=== PATIENT | male | born 1985 | race American Indian/Alaskan Native ===

== ENCOUNTER 2017-10-09 13:12 | Emergency (ER) | payer MEDICAID ==
[2017-10-09] MEDS ORDERED: BOOSTRIX IM ONE (14:03)
[2017-10-09] MEDS ORDERED: XYLOCAINE 2% INFILTRATI ONE (14:04)
[2017-10-09] MEDS ORDERED: TRIPLE ANTIBIOTIC TP ONE ×2 (14:13→15:02)
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
[2017-10-09] MEDS ORDERED: MOTRIN PO ONE (15:06)
[2017-10-09 15:28] VITALS: BP 118/82
== END 2017-10-09 15:23 ==
LOC: EDBD → ED 13:12
DX: S01.81XA Laceration without foreign body of other part of head, initial encounter (principal); S00.01XA Abrasion of scalp, initial encounter; Y08.89XA Assault by other specified means, initial encounter; Y93.89 Activity, other specified; Y92.89 Other specified places as the place of occurrence of the external cause; Y99.8 Other external cause status
CPT/HCPCS: 70450; 72125; 90471; 90715; A6250